=== PATIENT | male | born 1960 | race Caucasian/White ===

== ENCOUNTER 2021-01-19 23:27 | Inpatient (IN) | payer MEDICARE, OTHER ==
[~2021-01-19] VITALS: Ht 167.6 cm; Wt 61.2 kg
--- NOTE | 2021-01-19 23:40 | NUR ---
PATIENT BIB [facility] FROM HOME FOR C/O GENARALIZED WEAKNESS X 2DAYS.
[2021-01-20 00:01] LABS: HEMATOCRIT 36.2 % (36.7-47.1); MEAN CORPUSCULAR HEMOGLOBIN 30.7 uug (23.8-33.4); MEAN CORPUSCULAR VOLUME 89.9 fL (73.0-96.2); PLATELET COUNT (AUTO) 243 K/uL (152-348)
[2021-01-20 00:04] LABS: CREATININE 2.5 mg/dL (0.6-1.3); POTASSIUM 3.6 mmol/L (3.5-5.1)
[2021-01-20] MEDS ORDERED: ASPIRIN 81 MG TAB.CHEW PO ONE (00:15)
[2021-01-20 00:16] LABS: BILIRUBIN,DIRECT 0.1 mg/dL (0.0-0.2); BILIRUBIN,TOTAL 0.3 mg/dL (0.2-1.0)
--- NOTE | 2021-01-20 00:18 | NUR ---
DR KAUR AT BEDSIDE FOR MSE
[2021-01-20] MEDS ORDERED: ASPIRIN 81 MG TAB.CHEW ONE (00:25)
[2021-01-20] MEDS ORDERED: IV NS 1000 ML 1,000 ML IV ONE (00:45)
--- NOTE | 2021-01-20 01:23 | NUR ---
Dr. Baker on panel call with Dr. Frost.
[2021-01-20] MEDS ORDERED: MORPHINE SULFATE 2 MG/1 ML DISP.SYRIN IV PRN (01:30)
[2021-01-20] MEDS ORDERED: ONDANSETRON 4 MG/2 ML VIAL IV PRN (01:30)
[2021-01-20] MEDS ORDERED: hydrALAZINE HCL 20 MG/1 ML VIAL IV PRN (01:30)
[2021-01-20] MEDS ORDERED: LABETALOL HCL 100 MG/20 ML VIAL IV PRN (01:30)
[2021-01-20] MEDS ORDERED: vitamin d2 PO (02:57)
[2021-01-20] MEDS ORDERED: AMIO200T5 PO (02:57)
[2021-01-20] MEDS ORDERED: FAMO40TA7 PO (02:57)
[2021-01-20] MEDS ORDERED: CARV3.122 PO (02:57)
[2021-01-20] MEDS ORDERED: ASPI81TA31 PO (02:57)
[2021-01-20] MEDS ORDERED: BUME1TAB8 PO (02:57)
[2021-01-20] MEDS ORDERED: TRAZ-257 PO (02:57)
[2021-01-20] MEDS ORDERED: DOCU250C14 PO (02:57)
[2021-01-20] MEDS ORDERED: ATOR80TA PO (02:57)
[2021-01-20] MEDS ORDERED: APIX5TAB PO (02:57)
--- NOTE | 2021-01-20 05:15 | NUR ---
Pt. admitted to [facility], room 306, under care of Dr. Frost. Belongs List completed.
[2021-01-20 05:35] VITALS: BP 97/40
--- NOTE | 2021-01-20 05:51 | NUR ---
PATIENT ADMITTED ON TELE FLOOR UNDER THE CARE OF DR. BAILON, PATIENT ALERT ORIENTED, NO SOB NO CHEST PAIN, TELE MONITOR V PACING AT 60 PER MIN. PATIENT NO COMPLAIN OF PAIN, CONT TO MONITOR.
--- NOTE | 2021-01-20 07:01 | NUR ---
PATIENT ALERT ORIENTED, NO SOB NO CHEST PAIN, WITH EPISODE OF SINUS COLIN 46 FOR FEW SECONDS, ASYMPTOMATIC, PATIENT ON DEEP SLEEP, CONT TO MONITOR.
--- NOTE | 2021-01-20 08:00 | NUR ---
ALERT AND ORIENTED X3 SPEAKS [place], A-PACED ON MONITOR. NO SS OF PAIN OR SOB
[2021-01-20 08:47] VITALS: BP 99/56
[2021-01-20] MEDS: ACETAMINOPHEN 325 MG TABLET PO PRN (09:29)
[2021-01-20] MEDS: ASPIRIN 81 MG TAB.CHEW PO SCH (09:29)
[2021-01-20 11:16] VITALS: BP 109/61
[2021-01-20] MEDS ORDERED: FAMOTIDINE 20 MG TABLET PO SCH (12:43)
[2021-01-20] MEDS: AMIODARONE HCL 200 MG TABLET PO SCH (13:02)
[2021-01-20] MEDS: APIXABAN 2.5 MG TABLET PO SCH ×2 (13:03→21:04)
--- NOTE | 2021-01-20 14:15 | NUR ---
SEEN BY DR GOLDBERG SEE NOTES
--- NOTE | 2021-01-20 14:15 | NUR ---
AWAKE ALERT AND ORIENTED X3, GUYANESE SPEAKING. 2D ECHO DONE 25-30%, PATIENT DENIES SOB OR CHEST PAIN. V-PACED ON MONITOR
[2021-01-20 15:27] LABS: *BILIRUBIN,URIN NEGATIVE (NEGATIVE); *BLOOD, URINE NEGATIVE (NEGATIVE); *CLARITY,URINE CLEAR (CLEAR); *COLOR,URINE YELLOW (YELLOW); *KETONES,URINE NEGATIVE (NEGATIVE); *UROBILINOGEN,URINE 0.2 E.U./dl (NORMAL); LEUKOCYTE ESTERASE ,URINE NEGATIVE (NEGATIVE); NITRITE, URINE NEGATIVE (NEGATIVE); UGLUCOSE NEGATIVE (NEGATIVE)
[2021-01-20 15:47] VITALS: BP 109/55
--- NOTE | 2021-01-20 19:20 | NUR ---
PATIENT ALERT ORIENTED, NO SOB NO CHEST PAIN, TELE MONITOR V PACING, NO COMPLAIN OF PAIN, CONT TO MONITOR.
[2021-01-20 20:10] VITALS: BP 109/64
[2021-01-20] MEDS: TRAZODONE 100 MG TABLET PO SCH (21:01)
[2021-01-20] MEDS: ATORVASTATIN 40 MG TABLET PO SCH (21:01)
[2021-01-21] VITALS (25 sets, daily range): BP systolic 59–141; BP diastolic 26–84
--- NOTE | 2021-01-21 06:31 | NUR ---
PATIENT ALERT ORIENTED NO SOB NO CHEST PAIN. PATIENT ON TELE MONITOR V PACING, WITH EPISODE OF SINUS COLIN 57 FOR FEW SECONDS. NO COMPLAIN OF PAIN, CONT TO MONITOR.
[2021-01-21 07:17] LABS: HEMATOCRIT 35.2 % (36.7-47.1); MEAN CORPUSCULAR HEMOGLOBIN 30.8 uug (23.8-33.4); MEAN CORPUSCULAR VOLUME 90.8 fL (73.0-96.2); PLATELET COUNT (AUTO) 200 K/uL (152-348)
[2021-01-21 07:30] LABS: BILIRUBIN,TOTAL 0.4 mg/dL (0.2-1.0); CREATININE 2.4 mg/dL (0.6-1.3); PHOSPHOROUS 4.1 mg/dL (2.5-4.9); POTASSIUM 4.6 mmol/L (3.5-5.1); TOTAL PROTEIN, SERUM 7.5 g/dL (6.4-8.2)
--- NOTE | 2021-01-21 08:08 | NUR ---
PATIENT FOUND ON THE FLOOR AT HIS BEDSIDE BY OCCUPATIONAL THERAPIST LYING ON HIS RIGHT SIDE, AWAKE ALERT AND ORIENT X3 SPEAKS BOTH EMIRATI AND BELARUSIAN AND SAID I GOT DIZZY. BODY CHECK FOR INJURY AND CHANGE OF ROM, DENIES ANY PAIN OR LIMITATION IN ROM. NOTED RIGHT EAR WITH BRUISE. NO NAUSEA AND VOMITING. BP 95/51, HR 67, RR 20, SAT. RA 198%. ASSISTED BACK TO BED WITH SIGNS OF PAIN. ICE PACK APPLIED TO RIGHT EAR TOLERATED ONLY FOR 15 MINS
[2021-01-21] MEDS: ACETAMINOPHEN 325 MG TABLET PO PRN (08:34)
[2021-01-21] MEDS: ASPIRIN 81 MG TAB.CHEW PO SCH (08:34)
[2021-01-21] MEDS: DOCUSATE SODIUM 250 MG CAPSULE PO SCH (08:34)
[2021-01-21] MEDS: APIXABAN 2.5 MG TABLET PO SCH ×2 (08:35→20:18)
[2021-01-21] MEDS: AMIODARONE HCL 200 MG TABLET PO SCH (09:00)
--- NOTE | 2021-01-21 09:00 | NUR ---
DR GOLDBERG MADE AWARE OF THE INCIDENT, WILL FOLLOW-UP PATIENT
--- NOTE | 2021-01-21 09:48 | NUR ---
PATIENT ABLE TO SIT AT BEDSIDE FOR BREAKFAST WITH . DENIES PAIN OR DIZZINESS. REMAINS V-PACED ON MONITOR RATE OF 68
--- NOTE | 2021-01-21 10:00 | NUR ---
DR TORRES AND DR GOLDBERG MADE AWARE OF LOW BP WITH ORDERS
[2021-01-21] MEDS ORDERED: IV NS 1000 ML 1,000 ML IV PRN (10:15)
--- NOTE | 2021-01-21 10:16 | NUR ---
DR BASURTO MADE AWARE OF LOW BP WITH ORDER TO START ON NS 75 MLS/HR
[2021-01-21] MEDS: IV D5/ 0.9% NACL 1,000 ML IV PRN ×2 (10:48→23:59)
[2021-01-21] MEDS ORDERED: TRAMADOL HCL 50 MG TABLET PO PRN (11:00)
[2021-01-21] MEDS: MIDODRINE HCL 2.5 MG TABLET PO SCH ×3 (11:36→21:05)
--- NOTE | 2021-01-21 14:33 | NUR ---
dr burroughs notified of low bp with order to transfer to ccu for further tx and higher level of care.
--- NOTE | 2021-01-21 14:35 | NUR ---
AT BEDSIDE MADE AWARE OF NEED TO TRANSFER TO CCU, FAMILY ARE VERY COMPLIANCE WITH CARE. LATEST BP 80/42, HR 65 V-PACED
[2021-01-21] MEDS ORDERED: NOREPINEPHRINE BITARTRATE 8 MG in IV NORMAL SALINE 242 ML IV PRN (14:45)
--- NOTE | 2021-01-21 14:55 | NUR ---
transferred to ccu bed 2 for levophed, report given to CCU staff
--- NOTE | 2021-01-21 15:00 | NUR ---
received report from leona FUENTES. patient had a fall this morning experienced dizziness when ambulating. patient is hypotensive in 80s. Is awake alert oriented and v-pacing on the monitor. blood cultures being drawn at bedside and will be going to head CT when ordered per primary.
[2021-01-21] MEDS: PIPERACILLIN/TAZO 2.25 G in IV DEXTROSE 5% 50 ML IV SCH ×2 (16:55→23:57)
[2021-01-21] MEDS ORDERED: VANCOMYCIN IV 1,000 MG in IV DEXTROSE 5% 250 ML IV ONE (17:00)
--- NOTE | 2021-01-21 19:45 | NUR ---
PATIENT IN BED ASLEEP NO DISTRESS NOTED ,BREATHING EVEN AND UNLABORED ROOM AIR ,95% RR 20 TO 24.OFF LEVOPHED DRIP . WILL CONTINUE TO MONITOR BP .
[2021-01-21] MEDS: ATORVASTATIN 40 MG TABLET PO SCH (20:17)
[2021-01-21] MEDS: TRAZODONE 100 MG TABLET PO SCH (20:17)
--- NOTE | 2021-01-21 20:45 | NUR ---
PATIENT DAUGHTER CALLED AND INFORMED PATIENT IN BED SLEEPING ,V/S WNL .NO DISTRESS NOTED . I TOLD THEM IF THEY WANT TO SPEAK WITH THE PATIENT THEY SAID NO .
--- NOTE | 2021-01-21 21:03 | NUR ---
DUE MEDS GIVEN TOLERATED WITH WATER , PATIENT VOIDED USING THE URINAL 200 ML OF YELLOWISH URINE ADVISED PATIENT TO CALL FOR HELP AND NO TO GET OOB AND HIS ON BEDREST AND TO USED THE CALL [facility]JO FOR SAFETY . (PREVENT FALLS)
[2021-01-22] VITALS (22 sets, daily range): BP systolic 84–117; BP diastolic 41–69
[2021-01-22] MEDS: IV D5/ 0.9% NACL 1,000 ML IV PRN (00:09)
[2021-01-22] MEDS: ACETAMINOPHEN 325 MG TABLET PO PRN (00:15)
--- NOTE | 2021-01-22 00:15 | NUR ---
temp 99.2 F via orally , given Tylenol po .due antibiotic given Zosyn .
--- NOTE | 2021-01-22 02:00 | NUR ---
VOID USING THE URINAL ,YELLOWISH URINE . EMPTIED AND PLACED BACK WITH IN REACH .
--- NOTE | 2021-01-22 04:00 | NUR ---
TEMP CHECKED 98.3, ORALLY ,AFEBRILE . PATIENT HAD LABS DONE BY HEEL SEAT FILLER AND PORTABLE CHEST DONE AT B/S. .
[2021-01-22 05:26] LABS: HEMATOCRIT 33.6 % (36.7-47.1); MEAN CORPUSCULAR HEMOGLOBIN 30.3 uug (23.8-33.4); MEAN CORPUSCULAR VOLUME 90.5 fL (73.0-96.2); PLATELET COUNT (AUTO) 183 K/uL (152-348)
[2021-01-22] MEDS: MIDODRINE HCL 2.5 MG TABLET PO SCH (05:42)
[2021-01-22] MEDS: PIPERACILLIN/TAZO 2.25 G in IV DEXTROSE 5% 50 ML IV SCH ×4 (05:42→23:32)
[2021-01-22 05:52] LABS: CREATININE 2.3 mg/dL (0.6-1.3); MAGNESIUM 2.2 mg/dL (1.8-2.4); VANCOMYCIN,RANDOM 14.8 ug/mL (18.0-26.0)
[2021-01-22] MEDS ORDERED: MIDODRINE HCL 2.5 MG TABLET PO ONE (07:30)
--- NOTE | 2021-01-22 07:50 | NUR ---
Dr. Vasquez made rounds. Per Dr. Vasquez, cardiac clearance ok to transfer to telemetry.
[2021-01-22] MEDS: ASPIRIN 81 MG TAB.CHEW PO SCH (08:02)
[2021-01-22] MEDS: AMIODARONE HCL 200 MG TABLET PO SCH (08:02)
[2021-01-22] MEDS: DOCUSATE SODIUM 250 MG CAPSULE PO SCH (08:03)
[2021-01-22] MEDS: APIXABAN 2.5 MG TABLET PO SCH ×2 (08:05→21:05)
[2021-01-22] MEDS ORDERED: FAMOTIDINE 20 MG TABLET PO SCH ×2 (09:00)
--- NOTE | 2021-01-22 10:57 | NUR ---
Per sravan Flores to transfer to telemetry.
[2021-01-22] MEDS ORDERED: VANCOMYCIN IV 750 MG in IV DEXTROSE 5% 250 ML IV SCH (11:00)
[2021-01-22] MEDS: MIDODRINE HCL 5 MG TABLET PO SCH ×2 (14:06→21:04)
--- NOTE | 2021-01-22 19:30 | NUR ---
ROUNDS MADE PATIENT IN BED RESTING ,NO DISTRESS NOTED V/S WNL .02 AT 1 L/MIN VIA NASAL CANNULA . V PACED ON THE HEART MONITOR RATE 60 TO 65 .
--- NOTE | 2021-01-22 20:30 | NUR ---
PATIENT SON CAME AND VISITED HIM .UPDATED WITH PATIENT CONDITION AND PATIENT SON REQUESTED FOR US TO HELP HIS FATHER WITH HIS NEEDS ,INFORMED HIM AT WE ARE HERE TO HELP HIM . PATIENT WANTS TO USE THE BEDSIDE COMMODE ,ASSISTED PATIENT OOB TO THE BEDSIDE COMMODE . NO BM ONLY GAS . USES THE URINAL TO VOID .
[2021-01-22] MEDS: ATORVASTATIN 40 MG TABLET PO SCH (21:04)
--- NOTE | 2021-01-22 21:04 | NUR ---
PATIENT TOOK PM MEDICATION TOLERATED WITH WATER . CHANGED SOILED LINENS AND GOWN . URINAL PLACED WITH IN REACH .
[2021-01-22] MEDS: TRAZODONE 100 MG TABLET PO SCH (21:05)
[2021-01-23] VITALS: BP 100/55
--- NOTE | 2021-01-23 | NUR ---
sleeping in bed no respiratory distress noted tolerating o2 nasal cannula at 1liter /min saturation 94 % ,rr 16 afebrile temp 98.1
--- NOTE | 2021-01-23 02:00 | NUR ---
voidied using the urinal ,yellowish colored urine .
[2021-01-23 04:07] VITALS: BP 92/63
--- NOTE | 2021-01-23 04:30 | NUR ---
loader demolder came and draw am labs .
[2021-01-23] MEDS: PIPERACILLIN/TAZO 2.25 G in IV DEXTROSE 5% 50 ML IV SCH (05:07)
[2021-01-23] MEDS: MIDODRINE HCL 5 MG TABLET PO SCH ×2 (05:10→13:04)
[2021-01-23 05:29] LABS: HEMATOCRIT 33.4 % (36.7-47.1); MEAN CORPUSCULAR HEMOGLOBIN 30.9 uug (23.8-33.4); MEAN CORPUSCULAR VOLUME 91.1 fL (73.0-96.2); PLATELET COUNT (AUTO) 181 K/uL (152-348)
[2021-01-23 05:40] LABS: CREATININE 2.5 mg/dL (0.6-1.3); MAGNESIUM 2.1 mg/dL (1.8-2.4); PHOSPHOROUS 4.2 mg/dL (2.5-4.9); POTASSIUM 4.3 mmol/L (3.5-5.1)
--- NOTE | 2021-01-23 06:30 | NUR ---
assisted oob to the bedside commode. patient had a bm moderate amt semi liquid greenish in amt . back to bed.
[2021-01-23 08:00] VITALS: BP 111/40
--- NOTE | 2021-01-23 08:00 | NUR ---
pt in bed sleeping, easily arousable, c/o generalized weakness, a/ox4, pt on room air, no signs of distress, no reports of pain, pt saturating at 100%. pt voiding using urinal at bedside, IV access on the left AC 20g, and the left FA 20g. bed low and locked, call light within reach, at bedside, will continue to monitor.
[2021-01-23] MEDS: AMIODARONE HCL 200 MG TABLET PO SCH (08:30)
[2021-01-23] MEDS: ASPIRIN 81 MG TAB.CHEW PO SCH (08:30)
[2021-01-23] MEDS: DOCUSATE SODIUM 250 MG CAPSULE PO SCH (08:31)
[2021-01-23] MEDS: APIXABAN 2.5 MG TABLET PO SCH (08:33)
[2021-01-23] MEDS ORDERED: ENSURE ENLIVE (VAN) 240 ML LIQUID PO SCH (09:00)
[2021-01-23] MEDS ORDERED: ASPI-618 PO (11:04)
[2021-01-23] MEDS ORDERED: ATOR40TA PO (11:04)
[2021-01-23] MEDS ORDERED: APIX2.5T PO (11:04)
[2021-01-23] MEDS ORDERED: MIDO5TAB4 PO (11:04)
[2021-01-23 12:03] VITALS: BP 99/54
[2021-01-23 13:04] VITALS: BP 87/57
--- NOTE | 2021-01-23 13:05 | NUR ---
pt discharged home with all belongings, pt a/ox4, room air, no signs of distress, no reports of pain. family at bedside, pt left with all belongings, pt left via private car with family. pt cooperative and pleasant. IV access removed and IV band removed. pt given education material, medication information, and exit care instructions.
== END 2021-01-23 13:05 | disposition home or self-care (01) | DRG 280 ==
LOC: ER 23:57 → TELE3 01-20 04:30 → CCU 01-21 14:39
PROVIDERS: ADMIT Internal Medicine; ATTEND Internal Medicine
DX: I95.1 Orthostatic hypotension (principal); N17.0 Acute kidney failure with tubular necrosis; I21.A1 Myocardial infarction type 2; I50.43 Acute on chronic combined systolic (congestive) and diastolic (congestive) heart failure; D68.59 Other primary thrombophilia; I13.0 Hypertensive heart and chronic kidney disease with heart failure and stage 1 through stage 4 chronic kidney disease, or unspecified chronic kidney disease; N18.4 Chronic kidney disease, stage 4 (severe); I48.0 Paroxysmal atrial fibrillation; I25.5 Ischemic cardiomyopathy; D64.9 Anemia, unspecified; E11.22 Type 2 diabetes mellitus with diabetic chronic kidney disease; E78.5 Hyperlipidemia, unspecified; I25.10 Atherosclerotic heart disease of native coronary artery without angina pectoris; Z20.822 Contact with and (suspected) exposure to COVID-19; Z79.01 Long term (current) use of anticoagulants; I70.0 Atherosclerosis of aorta; Z92.21 Personal history of antineoplastic chemotherapy; Z95.5 Presence of coronary angioplasty implant and graft; Z95.810 Presence of automatic (implantable) cardiac defibrillator; R53.1 Weakness; Z85.72 Personal history of non-Hodgkin lymphomas; Z74.09 Other reduced mobility; R91.8 Other nonspecific abnormal finding of lung field; E11.42 Type 2 diabetes mellitus with diabetic polyneuropathy; Z86.16 Personal history of COVID-19
CPT/HCPCS: 36415; 70030-TC; 70450; 71045; 71250; 82378; 83550; 83735; 84100; 84153; 85025; 87040; 87077; 87086; 93005; 93307; 93880; 97161; A4663; G0378; J2270; J2405; J2543; J3370; J3490; J7030; J7042; J7050; J7060